=== PATIENT | male | born 1960 | race African-American/Black ===

== ENCOUNTER 2017-08-18 11:36 | Inpatient (IN) | payer OTHER ==
[2017-08-18 11:38] VITALS: BMI 26.6
--- NOTE | 2017-08-18 15:28 | HP ---
CIWA Score - CIWA Score Nausea/Vomitin-No Nausea/No Vomiting Muscle Tremors: 1-None Visible, but [place] Anxiety: 5 Agitation: 2 Paroxysmal Sweats: 1-Minimal Palms Moist Orientation: 0-Oriented Tacttile Disturbances: 3-Moderate Itch/Numb/Burn Auditory Disturbances: 0-None Visual Disturbances: 0-None Headache: 0-None Present CIWA-Ar Total Score: 12 Admission ROS BHS - HPI Chief Complaint: WITHDRAWAL SX FROM ALCOHOL Allergies/Adverse Reactions: Allergies Allergy/AdvReac Type Severity Reaction Status Date / Time No Known Allergies Allergy Verified 08/18/17 13:18 History of Present Illness: 57 Y/O AA/MALE WITH A HX ALCOHOL COCAINE AND MARIJUANA DEPENDENCE SEEKING DETOX TX. 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 [place]. PRIMARY CARE AT [facility]. Exam Limitations: No Limitations - Ebola screening Have you traveled outside of the country in the last 21 days: No Have you had contact with anyone from an Ebola affected area: No Have you been sick,other than usual withdrawal symptoms: No Do you have a fever: No - Review of Systems Constitutional: Chills, Loss of Appetite, Night Sweats, Unintentional Wgt. Loss EENT: reports: Blurred Vision (WEARS GLASSES), Tearing, Nose Congestion, Dental Problems (MISSING TEETH- PARTIAL UPPER DENTURE) Respiratory: reports: No Symptoms reported Cardiac: reports: No Symptoms Reported GI: reports: Constipated, Diarrhea, Nausea, Poor Appetite, Poor Fluid Intake, Vomiting : reports: No Symptoms Reported Musculoskeletal: reports: Joint Pain (RIGHT LOWER LEG PAIN-TRUAMA TO TIBIA 2 YRS AGO) Integumentary: reports: Rash (ON BACK OF NECK) Neuro: reports: No Symptoms reported Endocrine: reports: No Symptoms Reported Hematology: reports: Anemia Psychiatric: reports: Orientated x3, Anxious, Depressed Other Systems: Reviewed and Negative Patient History - Patient Medical History Hx Anemia: Yes (TREATMENT IN THE PAST) Hx Asthma: No Hx Chronic Obstructive Pulmonary Disease (COPD): No Hx Cancer: Yes (OF LYMPH NODES-CHEMO 2 YRS AGO.) Hx Cardiac Disorders: No Hx Hypertension: No Hx Hypercholesterolemia: Yes (ON MED BUT FORGOT NAME) HX Cerebrovascular Accident: No Hx Seizures: No Hx Diabetes: Yes (ON MED) Hx Gastrointestinal Disorders: No Hx Genitourinary Disorders: No Hx Sexually Transmitted Disorders: No Hx Renal Disease (ESRD): No Hx Thyroid Disease: No Hx Hepatitis C: No Hx Depression: Yes Hx Suicide Attempt: No Hx Schizophrenia: No - Patient Surgical History Past Surgical History: Yes Hx Neurologic Surgery: No Hx Cataract Extraction: No Hx Cardiac Surgery: No Hx Lung Surgery: No Hx Breast Surgery: No Hx Breast Biopsy: No Hx Abdominal Surgery: No Hx Appendectomy: No Hx Cholecystectomy: No Hx Genitourinary Surgery: No Hx Section: No Hx Orthopedic Surgery: Yes (Left hand surgery) Other Surgical History: Neck and ankle cancer Anesthesia Reaction: No - PPD History Previous Implant?: Yes (Needs chest X-ray.) Documented Results: Positive w/o proof Implanted On Prior [facility] Admission?: No Results: CXR TBD PPD to be Administered?: No - Reproductive History Patient is a Female of Child Bearing Age (11 -55 yrs old): No (MALE) - Smoking Cessation Smoking history: Current every day smoker Have you smoked in the past 12 months: Yes Aproximately how many cigarettes per day: 10 Hx Chewing Tobacco Use: No Initiated information on smoking cessation: Yes 'Breaking Loose' booklet given: 08/18/17 - Substance & Tx. History Hx Alcohol Use: Yes (BEER) Hx Substance Use: Yes (COCAINE/MARIJUANA) Substance Use Type: Alcohol, Cocaine, Marijuana Hx Substance Use Treatment: Yes (BUT DOES NOT REMEMBER) - Substances Abused Alcohol Route: Oral Frequency: Daily Amount used: 80 oz of beer Age of first use: 28 Date of Last Use: 08/17/17 Crack Route: Smoking Frequency: 3-6 times per week Amount used: 10 vials Age of first use: 32 Date of Last Use: 08/16/17 Marijuana/Hashish Route: Smoking Frequency: 1-2 times per week Amount used: onr dime bag Age of first use: 32 Date of Last Use: 08/16/17 Family Disease History - Family Disease History Family History: Unable to Obtain Family Disease History: [place]: Brother, Other: Mother (HTN) Admission Physical Exam BHS - Vital Signs Vital Signs: Vital Signs - 24 hr 08/18/17 08/18/17 11:36 12:54 Temperature 97 F L 97 F L Pulse Rate 97 H 97 H Respiratory 18 18 Rate Blood Pressure 149/89 149/89 - Physical General Appearance: Yes: Moderate Distress, Irritable, Anxious HEENTM: Yes: EOMI, Normocephalic, KAUSHIK, Pharynx Normal Respiratory: Yes: Chest Non-Tender, Lungs Clear, Normal Breath Sounds, No Respiratory Distress Neck: Yes: Supple, Trachea in good position Breast: Yes: Breast Exam Deferred Cardiology: Yes: Regular Rhythm, Regular Rate, S1, S2 Abdominal: Yes: Normal Bowel Sounds, Non Tender, Flat, Soft Genitourinary: Yes: Other (N/C) Back: Yes: Within Normal Limits Musculoskeletal: Yes: full range of Motion, Gait Steady Extremities: Yes: Normal Range of Motion, Non-Tender 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 [employer] II-XII NML intact, Fully Oriented, Alert, Motor Strength 5/5 Integumentary: Yes: Dry, Warm Lymphatic: Yes: Within Normal Limits - Diagnostic (1) Alcohol dependence with uncomplicated withdrawal Current Visit: Yes Status: Acute (2) Cocaine dependence, uncomplicated Current Visit: Yes Status: Acute (3) Cannabis dependence, uncomplicated Current Visit: Yes Status: Acute (4) Hypercholesterolemia Current Visit: Yes Status: Acute (5) Type 2 diabetes mellitus Current Visit: Yes Status: Chronic Cleared for Admission [facility] - Detox or Rehab [facility] Level of Care: Medically Managed Detox Regimen/Protocol: Librium [facility] Breath Alcohol Content Breath Alcohol Content: 0 Urine Drug Screen - Results Drug Screen Negative: Yes Urine Drug Screen Results: THC-Marijuana, RAJESH-Cocaine
[2017-08-18] MEDS ORDERED: MAGNESIUM CITRATE 300 ML BOTTLE PO PRN (15:56)
[2017-08-18] MEDS ORDERED: guaiFENesin/D-METHORPHAN HB 10 ML UNIT-DOSE CUPS PO PRN (15:56)
[2017-08-18] MEDS ORDERED: chlordiazePOXIDE HCL 25 MG CAPSULE PO PRN (15:56)
[2017-08-18] MEDS ORDERED: chlordiazePOXIDE HCL 25 MG CAPSULE PO ONE (15:56)
[2017-08-18] MEDS ORDERED: NICOTINE POLACRILEX 2 MG GUM BUC PRN (15:56)
[2017-08-18] MEDS ORDERED: MAGNESIUM HYDROX 2400MG/30ML ORAL SUSPENSION 30 ML CUP PO PRN (15:56)
[2017-08-18] MEDS ORDERED: MENTHOL/PHENOL 1 EACH UD MM PRN (15:56)
[2017-08-18] MEDS ORDERED: ACETAMINOPHEN 325 MG TABLET (FP) PO PRN (15:56)
[2017-08-18] MEDS ORDERED: MAG HYDROX/AL HYDROX/SIMETH 30 ML UNIT-DOSE CUP PO PRN (15:56)
[2017-08-18] MEDS ORDERED: LOPERAMIDE HCL 2 MG CAPSULE PO PRN (15:56)
[2017-08-18] MEDS ORDERED: P-EPHED 60MG/TRIPROLIDI 2.5MG TABLET PO PRN (15:56)
[2017-08-18] MEDS ORDERED: IBUPROFEN 400 MG TABLET (FP) PO PRN (15:56)
--- NOTE | 2017-08-18 16:55 | CONSULT ---
[facility] Psychiatric Consult - Data Date of interview: 08/18/17 Admission source: [facility] Identifying data: First admission to [facility] for this 57 y/o AA male seeking detox treatment on for alcohol,cocaine (crack) and cannabis dependence.Patient is ,a father of four,domiciled,unemployed and supported on SSD benefits. Substance Abuse History: Confirmed by the patient in tis examination.Details in current [facility] report : Smoking history: Current every day smoker. Have you smoked in the past 12 months: Yes. Aproximately how many cigarettes per day: 10. Hx Chewing Tobacco Use: No. Initiated information on smoking cessation: Yes. 'Breaking Loose' booklet given: 08/18/17. - Substance & Tx. History. Hx Alcohol Use: Yes (BEER). Hx Substance Use: Yes (COCAINE/MARIJUANA). Substance Use Type: Alcohol, Cocaine, Marijuana. Hx Substance Use Treatment: Yes (BUT DOES NOT REMEMBER). - Substances Abused. Alcohol. Route: Oral. Frequency : Daily. Amount used: 80 oz of beer. Age of first use: 28. Date of Last Use: 08/17/17. Crack. Route: Smoking. Frequency: 3-6 times per week. Amount used: 10 vials. Age of first use: 32. Date of Last Use: 08/16/17. Marijuana/Hashish. Route: Smoking. Frequency: 1-2 times per week. Amount used : onr dime bag. Age of first use: 32. Date of Last Use: 08/16/17 Medical History: Remarkable for a history of throat cancer (surgery + chemotherapy),diabetes mellitus,dyslipidemia and anemia. Psychiatric History: Patient denies history of mental illness or psychiatric hospitalizations.No history of psychiatric OPD care.Mr Rodriguez denies suicide attempts. Physical/Sexual Abuse/Trauma History: No reported history of abuse.Coping well with malignancy (cancer survivor). Additional Comment: Urine Drug Screen Results: THC-Marijuana, RAJESH-Cocaine.Noted. Mental Status Exam - Mental Status Exam Alert and Oriented to: Time, Place, Person Cognitive Function: Good Patient Appearance: Well Groomed (short stature) Mood: Hopeful, Euthymic Affect: Appropriate, Normal Range Patient Behavior: Fatigued, Appropriate (well-mannered), Cooperative Speech Pattern: Clear, Appropriate Voice Loudness: Normal Thought Process: Intact, Goal Oriented Thought Disorder: Not Present Hallucinations: Denies Suicidal Ideation: Denies Homicidal Ideation: Denies Insight/Judgement: Poor Sleep: Well Appetite: Good Muscle strength/Tone: Normal Gait/Station: Normal Psychiatric Findings - Problem List (Omega 1, 2,3) (1) Alcohol dependence with uncomplicated withdrawal Current Visit: Yes Status: Acute (2) Cannabis dependence, uncomplicated Current Visit: Yes Status: Acute (3) Cocaine dependence, uncomplicated Current Visit: Yes Status: Acute - Initial Treatment Plan Initial Treatment Plan: Psychoeducation and support.Orientation to unit.Patient is made aware of the benefits of attendance + active participation to therapy groups and recreational programs throughout his hospital course.Detoxification treatment is initiated.Observation.
[2017-08-18] MEDS: chlordiazePOXIDE HCL 25 MG CAPSULE PO SCH ×2 (17:14→23:08)
[2017-08-18] MEDS: NICOTINE 14 MG/24 HOURS TOPICAL PATCH TD SCH (17:14)
[2017-08-18] MEDS ORDERED: metFORMIN HCL 500 MG TABLET (FP) PO ONE (18:30)
[2017-08-18] MEDS ORDERED: MELATONIN 5 MG TABLETS PO PRN (22:00)
[2017-08-18 22:46] LABS: URINE APPEARANCE CLEAR; URINE BILIRUBIN NEGATIVE (<2.0 mg/dL); URINE BLOOD NEGATIVE (NEGATIVE); URINE COLOR LTYELLOW; URINE GLUCOSE (UA) 3+ (NEGATIVE); URINE KETONE TRACE (NEGATIVE); URINE LEUK ESTERASE NEGATIVE (NEGATIVE); URINE NITRITE NEGATIVE (NEGATIVE); URINE PROTEIN NEGATIVE (NEGATIVE); URINE UROBILINOGEN NEGATIVE mg/dL (0.2-1.0)
[2017-08-18] MEDS: THIAMINE HCL 100 MG TABLET (FP) PO SCH (23:08)
[2017-08-19] MEDS: chlordiazePOXIDE HCL 25 MG CAPSULE PO SCH ×4 (05:26→22:15)
[2017-08-19] MEDS: metFORMIN HCL 500 MG TABLET (FP) PO SCH (08:07)
[2017-08-19] MEDS: NICOTINE 14 MG/24 HOURS TOPICAL PATCH TD SCH (10:13)
[2017-08-19] MEDS: PRENATAL VITAMINS W/ FOLIC ACID TABLET (FP) PO SCH (10:13)
[2017-08-19 10:28] LABS: HEMATOCRIT 44.1 % (35.4-49); HEMOGLOBIN 14.7 GM/dL (11.7-16.9); MCH 33.7 pg (25.7-33.7); MCHC 33.4 g/dl (32.0-35.9); MEAN CELL VOLUME 101.1 fl (80-96); MEAN PLT VOLUME 8.5 fl (7.5-11.1); PLATELET COUNT 226 K/MM3 (134-434); RBC 4.36 M/mm3 (4.00-5.60); WHITE BLOOD COUNT 4.3 K/mm3 (4.0-10.0)
[2017-08-19 10:56] LABS: ALBUMIN 3.9 g/dl (3.4-5.0); ANION GAP 7 (8-16); BLOOD UREA NITROGEN 11 mg/dL (7-18); CALCIUM 9.2 mg/dL (8.5-10.1); CHLORIDE 105 mmol/L (98-107); CO2 27 mmol/L (21-32); CREATININE 1.1 mg/dL (0.7-1.3); GLUCOSE,RANDOM 212 mg/dL (74-106); POTASSIUM 4.6 mmol/L (3.5-5.1); SGOT/AST 22 U/L (15-37); SGPT/ALT 27 U/L (12-78); SODIUM 139 mmol/L (136-145)
[2017-08-19 10:57] LABS: ALK PHOS 103 U/L (45-117); BILIRUBIN,TOTAL 0.3 mg/dL (0.2-1.0); TOT PROT 7.1 g/dl (6.4-8.2)
--- NOTE | 2017-08-19 11:07 | EKG ---
Test Reason : Blood Pressure : / mmHG Vent. Rate : 095 BPM Atrial Rate : 095 BPM P-R Int : 158 ms QRS Dur : 070 ms QT Int : 352 ms P-R-T Axes : 062 -18 246 degrees QTc Int : 442 ms NORMAL SINUS RHYTHM T WAVE ABNORMALITY, CONSIDER INFEROLATERAL ISCHEMIA ABNORMAL ECG WHEN COMPARED WITH ECG OF 18-AUG-2017 17:06, NO SIGNIFICANT CHANGE WAS FOUND Confirmed by DMITRY CARPENTER, YOEL ([id number]) on 08/19/2017 11:07:17 AM Referred By: Confirmed By:YOEL ANDRES MD
--- NOTE | 2017-08-19 11:09 | EKG ---
Test Reason : Blood Pressure : / mmHG Vent. Rate : 086 BPM Atrial Rate : 086 BPM P-R Int : 156 ms QRS Dur : 086 ms QT Int : 376 ms P-R-T Axes : 061 -28 -17 degrees QTc Int : 449 ms NORMAL SINUS RHYTHM NONSPECIFIC T WAVE ABNORMALITY ABNORMAL ECG NO PREVIOUS ECGS AVAILABLE Confirmed by DMITRY CARPENTER, YOEL ([id number]) on 08/19/2017 11:08:47 AM Referred By: Confirmed By:YOEL ANDRES MD
[2017-08-19 11:39] LABS: SICKLE CELL SCREEN NEGATIVE (NEGATIVE)
[2017-08-19] MEDS: HYDROCORTISONE 1% TOPICAL CREAM 30 GM TUBE TP SCH ×2 (13:58→22:14)
--- NOTE | 2017-08-19 17:21 | PN ---
[facility] CIWA - CIWA Score Nausea/Vomitin-No Nausea/No Vomiting Muscle Tremors: 2 Anxiety: 3 Agitation: 4-Moderately Restless Paroxysmal Sweats: 3 Orientation: 0-Oriented Tacttile Disturbances: 0-None Auditory Disturbances: 2-Mild Harshness/Frighten Visual Disturbances: 0-None Headache: 0-None Present CIWA-Ar Total Score: 14 BHS Progress Note (SOAP) Subjective: Fatigue, Anxious, sweating, Tremors. Objective: PATIENT A & O X 3, OBSERVED AMBULATING ON UNIT. NO ACUTE DISTRESS. 08/19/17 17:22 Vital Signs Temperature 97.8 F 08/19/17 14:30 Pulse Rate 99 H 08/19/17 14:30 Respiratory Rate 20 08/19/17 14:30 Blood Pressure 116/79 08/19/17 14:30 O2 Sat by Pulse Oximetry (%) Laboratory Tests 08/18/17 08/18/17 08/19/17 17:16 22:30 05:26 WBC RBC Hgb Hct MCV MCH MCHC RDW Plt Count MPV Sickle Cell Screen Sodium Potassium Chloride Carbon Dioxide Anion Gap BUN Creatinine Creat Clearance w eGFR POC Glucometer 196 271 Random Glucose Calcium Total Bilirubin AST ALT Alkaline Phosphatase Total Protein Albumin Urine Color Ltyellow Urine Appearance Clear Urine pH 5.0 Ur Specific [place] 1.025 Urine Protein Negative Urine Glucose (UA) 3+ H Urine Ketones Trace H Urine Blood Negative Urine Nitrite Negative Urine Bilirubin Negative Urine Urobilinogen Negative Ur Leukocyte Esterase Negative RPR Titer HIV 1&2 Antibody Screen HIV P24 Antigen 08/19/17 08/19/17 08/19/17 06:00 06:00 06:00 WBC 4.3 RBC 4.36 Hgb 14.7 Hct 44.1 MCV 101.1 H MCH 33.7 MCHC 33.4 RDW 15.0 Plt Count 226 MPV 8.5 Sickle Cell Screen Negative Sodium 139 Potassium 4.6 Chloride 105 Carbon Dioxide 27 Anion Gap 7 L BUN 11 Creatinine 1.1 Creat Clearance w eGFR > 60 POC Glucometer Random Glucose 212 H Calcium 9.2 Total Bilirubin 0.3 AST 22 ALT 27 Alkaline Phosphatase 103 Total Protein 7.1 Albumin 3.9 Urine Color Urine Appearance Urine pH Ur Specific [place] Urine Protein Urine Glucose (UA) Urine Ketones Urine Blood Urine Nitrite Urine Bilirubin Urine Urobilinogen Ur Leukocyte Esterase RPR Titer Nonreactive HIV 1&2 Antibody Screen HIV P24 Antigen 08/19/17 08/19/17 06:00 16:32 WBC RBC Hgb Hct MCV MCH MCHC RDW Plt Count MPV Sickle Cell Screen Sodium Potassium Chloride Carbon Dioxide Anion Gap BUN Creatinine Creat Clearance w eGFR POC Glucometer 180 Random Glucose Calcium Total Bilirubin AST ALT Alkaline Phosphatase Total Protein Albumin Urine Color Urine Appearance Urine pH Ur Specific [place] Urine Protein Urine Glucose (UA) Urine Ketones Urine Blood Urine Nitrite Urine Bilirubin Urine Urobilinogen Ur Leukocyte Esterase RPR Titer HIV 1&2 Antibody Screen Negative HIV P24 Antigen Negative LABS NOTED. Assessment: 08/19/17 17:22 WITHDRAWAL SYMPTOMS. Plan: CONTINUE DETOX.
[2017-08-19] MEDS: THIAMINE HCL 100 MG TABLET (FP) PO SCH (22:14)
[2017-08-20] MEDS: chlordiazePOXIDE HCL 25 MG CAPSULE PO SCH ×2 (05:52→10:46)
[2017-08-20] MEDS: metFORMIN HCL 500 MG TABLET (FP) PO SCH (06:46)
[2017-08-20] MEDS: PRENATAL VITAMINS W/ FOLIC ACID TABLET (FP) PO SCH (10:44)
[2017-08-20] MEDS: NICOTINE 14 MG/24 HOURS TOPICAL PATCH TD SCH (10:44)
[2017-08-20] MEDS: HYDROCORTISONE 1% TOPICAL CREAM 30 GM TUBE TP SCH ×2 (10:44→23:02)
--- NOTE | 2017-08-20 11:54 | PN ---
[facility] CIWA - CIWA Score Nausea/Vomitin-No Nausea/No Vomiting Muscle Tremors: 4-Moderate,w/Arms Extend Anxiety: 4-Mod. Anxious/Guarded Agitation: 3 Paroxysmal Sweats: 1-Minimal Palms Moist Orientation: 0-Oriented Tacttile Disturbances: 3-Moderate Itch/Numb/Burn Auditory Disturbances: 0-None Visual Disturbances: 0-None Headache: 0-None Present CIWA-Ar Total Score: 15 S Progress Note (SOAP) Subjective: ANXIETY,TREMORS,CHILLS,FATIGUE.ALERT O X 3. Objective: 08/20/17 11:53 Vital Signs Temperature 97.7 F 08/20/17 09:22 Pulse Rate 82 08/20/17 09:22 Respiratory Rate 18 08/20/17 09:22 Blood Pressure 111/77 08/20/17 09:22 O2 Sat by Pulse Oximetry (%) Laboratory Last Values WBC 4.3 K/mm3 (4.0-10.0) 08/19/17 06:00 RBC 4.36 M/mm3 (4.00-5.60) 08/19/17 06:00 Hgb 14.7 GM/dL (11.7-16.9) 08/19/17 06:00 Hct 44.1 % (35.4-49) 08/19/17 06:00 MCV 101.1 fl (80-96) H 08/19/17 06:00 MCH 33.7 pg (25.7-33.7) 08/19/17 06:00 MCHC 33.4 g/dl (32.0-35.9) 08/19/17 06:00 RDW 15.0 % (11.9-15.9) 08/19/17 06:00 Plt Count 226 K/MM3 (134-434) 08/19/17 06:00 MPV 8.5 fl (7.5-11.1) 08/19/17 06:00 Sickle Cell Screen Negative (NEGATIVE) 08/19/17 06:00 Sodium 139 mmol/L (136-145) 08/19/17 06:00 Potassium 4.6 mmol/L (3.5-5.1) 08/19/17 06:00 Chloride 105 mmol/L (98-107) 08/19/17 06:00 Carbon Dioxide 27 mmol/L (21-32) 08/19/17 06:00 Anion Gap 7 (8-16) L 08/19/17 06:00 BUN 11 mg/dL (7-18) 08/19/17 06:00 Creatinine 1.1 mg/dL (0.7-1.3) 08/19/17 06:00 Creat Clearance w eGFR > 60 (>60) 08/19/17 06:00 POC Glucometer 180 UNITS (80-120) 08/19/17 16:32 Random Glucose 212 mg/dL (74-106) H 08/19/17 06:00 Calcium 9.2 mg/dL (8.5-10.1) 08/19/17 06:00 Total Bilirubin 0.3 mg/dL (0.2-1.0) 08/19/17 06:00 AST 22 U/L (15-37) 08/19/17 06:00 ALT 27 U/L (12-78) 08/19/17 06:00 Alkaline Phosphatase 103 U/L (45-117) 08/19/17 06:00 Total Protein 7.1 g/dl (6.4-8.2) 08/19/17 06:00 Albumin 3.9 g/dl (3.4-5.0) 08/19/17 06:00 Urine Color Ltyellow 08/18/17 22:30 Urine Appearance Clear 08/18/17 22:30 Urine pH 5.0 (5.0-8.0) 08/18/17 22:30 Ur Specific [place] 1.025 (1.001-1.035) 08/18/17 22:30 Urine Protein Negative (NEGATIVE) 08/18/17 22:30 Urine Glucose (UA) 3+ (NEGATIVE) H 08/18/17 22:30 Urine Ketones Trace (NEGATIVE) H 08/18/17 22:30 Urine Blood Negative (NEGATIVE) 08/18/17 22:30 Urine Nitrite Negative (NEGATIVE) 08/18/17 22:30 Urine Bilirubin Negative (<2.0 mg/dL) 08/18/17 22:30 Urine Urobilinogen Negative mg/dL (0.2-1.0) 08/18/17 22:30 Ur Leukocyte Esterase Negative (NEGATIVE) 08/18/17 22:30 RPR Titer Nonreactive (NONREACTIVE) 08/19/17 06:00 HIV 1&2 Antibody Screen Negative 08/19/17 06:00 HIV P24 Antigen Negative 08/19/17 06:00 Assessment: 08/20/17 11:53 WITHDRAWAL SX Plan: CONTINUE DETOX
[2017-08-20] MEDS: chlordiazePOXIDE 5 MG CAPSULE PO SCH ×2 (17:23→22:11)
[2017-08-20] MEDS: THIAMINE HCL 100 MG TABLET (FP) PO SCH (22:11)
[2017-08-21] MEDS: chlordiazePOXIDE 5 MG CAPSULE PO SCH ×2 (05:57→10:45)
[2017-08-21] MEDS: metFORMIN HCL 500 MG TABLET (FP) PO SCH (07:08)
[2017-08-21] MEDS: PRENATAL VITAMINS W/ FOLIC ACID TABLET (FP) PO SCH (10:45)
[2017-08-21] MEDS: HYDROCORTISONE 1% TOPICAL CREAM 30 GM TUBE TP SCH ×2 (10:45→22:46)
[2017-08-21] MEDS: NICOTINE 14 MG/24 HOURS TOPICAL PATCH TD SCH (10:45)
--- NOTE | 2017-08-21 14:31 | PN ---
BHS Progress Note (SOAP) Subjective: Fatigue, Anxious. Objective: PATIENT A & O X 3. NO ACUTE DISTRESS. 08/21/17 14:29 Vital Signs Temperature 97.2 F L 08/21/17 13:13 Pulse Rate 94 H 08/21/17 13:13 Respiratory Rate 18 08/21/17 13:13 Blood Pressure 125/86 08/21/17 13:13 O2 Sat by Pulse Oximetry (%) Laboratory Tests 08/18/17 08/18/17 08/19/17 17:16 22:30 05:26 WBC RBC Hgb Hct MCV MCH MCHC RDW Plt Count MPV Sickle Cell Screen Sodium Potassium Chloride Carbon Dioxide Anion Gap BUN Creatinine Creat Clearance w eGFR POC Glucometer 196 271 Random Glucose Calcium Total Bilirubin AST ALT Alkaline Phosphatase Total Protein Albumin Urine Color Ltyellow Urine Appearance Clear Urine pH 5.0 Ur Specific [place] 1.025 Urine Protein Negative Urine Glucose (UA) 3+ H Urine Ketones Trace H Urine Blood Negative Urine Nitrite Negative Urine Bilirubin Negative Urine Urobilinogen Negative Ur Leukocyte Esterase Negative RPR Titer HIV 1&2 Antibody Screen HIV P24 Antigen 08/19/17 08/19/17 08/19/17 06:00 06:00 06:00 WBC 4.3 RBC 4.36 Hgb 14.7 Hct 44.1 MCV 101.1 H MCH 33.7 MCHC 33.4 RDW 15.0 Plt Count 226 MPV 8.5 Sickle Cell Screen Negative Sodium 139 Potassium 4.6 Chloride 105 Carbon Dioxide 27 Anion Gap 7 L BUN 11 Creatinine 1.1 Creat Clearance w eGFR > 60 POC Glucometer Random Glucose 212 H Calcium 9.2 Total Bilirubin 0.3 AST 22 ALT 27 Alkaline Phosphatase 103 Total Protein 7.1 Albumin 3.9 Urine Color Urine Appearance Urine pH Ur Specific [place] Urine Protein Urine Glucose (UA) Urine Ketones Urine Blood Urine Nitrite Urine Bilirubin Urine Urobilinogen Ur Leukocyte Esterase RPR Titer Nonreactive HIV 1&2 Antibody Screen HIV P24 Antigen 08/19/17 08/19/17 08/20/17 06:00 16:32 16:24 WBC RBC Hgb Hct MCV MCH MCHC RDW Plt Count MPV Sickle Cell Screen Sodium Potassium Chloride Carbon Dioxide Anion Gap BUN Creatinine Creat Clearance w eGFR POC Glucometer 180 262 Random Glucose Calcium Total Bilirubin AST ALT Alkaline Phosphatase Total Protein Albumin Urine Color Urine Appearance Urine pH Ur Specific [place] Urine Protein Urine Glucose (UA) Urine Ketones Urine Blood Urine Nitrite Urine Bilirubin Urine Urobilinogen Ur Leukocyte Esterase RPR Titer HIV 1&2 Antibody Screen Negative HIV P24 Antigen Negative 08/21/17 05:58 WBC RBC Hgb Hct MCV MCH MCHC RDW Plt Count MPV Sickle Cell Screen Sodium Potassium Chloride Carbon Dioxide Anion Gap BUN Creatinine Creat Clearance w eGFR POC Glucometer 252 Random Glucose Calcium Total Bilirubin AST ALT Alkaline Phosphatase Total Protein Albumin Urine Color Urine Appearance Urine pH Ur Specific [place] Urine Protein Urine Glucose (UA) Urine Ketones Urine Blood Urine Nitrite Urine Bilirubin Urine Urobilinogen Ur Leukocyte Esterase RPR Titer HIV 1&2 Antibody Screen HIV P24 Antigen labs noted. Assessment: 08/21/17 14:29 WITHDRAWAL SYMPTOMS. Plan: CONTINUE DETOX.
[2017-08-21] MEDS: chlordiazePOXIDE HCL 10 MG CAPSULE PO SCH ×2 (17:28→22:47)
[2017-08-21] MEDS: THIAMINE HCL 100 MG TABLET (FP) PO SCH (22:47)
[2017-08-22] MEDS: chlordiazePOXIDE HCL 10 MG CAPSULE PO SCH (05:47)
[2017-08-22] MEDS: metFORMIN HCL 500 MG TABLET (FP) PO SCH (07:11)
[2017-08-22 09:25] VITALS: BP 117/77; PULSE 91; TEMP 98.7
--- NOTE | 2017-08-22 11:32 | DS ---
[facility] Detox Discharge Summary Admission Date: 08/18/17 Discharge Date: 08/22/17 - History Present History: Alcohol Dependence, Cannabis Dependence, Cocaine Dependence Pertinent Past History: DMT2 PPD Positive HLD - Physical Exam Results Vital Signs: Vital Signs Temperature 98.7 F 08/22/17 09:25 Pulse Rate 91 H 08/22/17 09:25 Respiratory Rate 18 08/22/17 09:25 Blood Pressure 117/77 08/22/17 09:25 O2 Sat by Pulse Oximetry (%) Pertinent Admission Physical Exam Findings: Withdrawal symptoms Laboratory Tests 08/18/17 08/18/17 08/19/17 17:16 22:30 05:26 WBC RBC Hgb Hct MCV MCH MCHC RDW Plt Count MPV Sickle Cell Screen Sodium Potassium Chloride Carbon Dioxide Anion Gap BUN Creatinine Creat Clearance w eGFR POC Glucometer 196 271 Random Glucose Calcium Total Bilirubin AST ALT Alkaline Phosphatase Total Protein Albumin Urine Color Ltyellow Urine Appearance Clear Urine pH 5.0 Ur Specific [place] 1.025 Urine Protein Negative Urine Glucose (UA) 3+ H Urine Ketones Trace H Urine Blood Negative Urine Nitrite Negative Urine Bilirubin Negative Urine Urobilinogen Negative Ur Leukocyte Esterase Negative RPR Titer HIV 1&2 Antibody Screen HIV P24 Antigen 08/19/17 08/19/17 08/19/17 06:00 06:00 06:00 WBC 4.3 RBC 4.36 Hgb 14.7 Hct 44.1 MCV 101.1 H MCH 33.7 MCHC 33.4 RDW 15.0 Plt Count 226 MPV 8.5 Sickle Cell Screen Negative Sodium 139 Potassium 4.6 Chloride 105 Carbon Dioxide 27 Anion Gap 7 L BUN 11 Creatinine 1.1 Creat Clearance w eGFR > 60 POC Glucometer Random Glucose 212 H Calcium 9.2 Total Bilirubin 0.3 AST 22 ALT 27 Alkaline Phosphatase 103 Total Protein 7.1 Albumin 3.9 Urine Color Urine Appearance Urine pH Ur Specific [place] Urine Protein Urine Glucose (UA) Urine Ketones Urine Blood Urine Nitrite Urine Bilirubin Urine Urobilinogen Ur Leukocyte Esterase RPR Titer Nonreactive HIV 1&2 Antibody Screen HIV P24 Antigen 08/19/17 08/19/17 08/20/17 06:00 16:32 16:24 WBC RBC Hgb Hct MCV MCH MCHC RDW Plt Count MPV Sickle Cell Screen Sodium Potassium Chloride Carbon Dioxide Anion Gap BUN Creatinine Creat Clearance w eGFR POC Glucometer 180 262 Random Glucose Calcium Total Bilirubin AST ALT Alkaline Phosphatase Total Protein Albumin Urine Color Urine Appearance Urine pH Ur Specific [place] Urine Protein Urine Glucose (UA) Urine Ketones Urine Blood Urine Nitrite Urine Bilirubin Urine Urobilinogen Ur Leukocyte Esterase RPR Titer HIV 1&2 Antibody Screen Negative HIV P24 Antigen Negative 08/21/17 08/22/17 05:58 05:47 WBC RBC Hgb Hct MCV MCH MCHC RDW Plt Count MPV Sickle Cell Screen Sodium Potassium Chloride Carbon Dioxide Anion Gap BUN Creatinine Creat Clearance w eGFR POC Glucometer 252 284 Random Glucose Calcium Total Bilirubin AST ALT Alkaline Phosphatase Total Protein Albumin Urine Color Urine Appearance Urine pH Ur Specific [place] Urine Protein Urine Glucose (UA) Urine Ketones Urine Blood Urine Nitrite Urine Bilirubin Urine Urobilinogen Ur Leukocyte Esterase RPR Titer HIV 1&2 Antibody Screen HIV P24 Antigen Labs noted - Treatment Hospital Course: Detox Protocol Followed, Detoxed Safely, Responded well, Discharged Condition Good - Medication Discharge Medications: Ambulatory Orders Metformin HCl 500 mg PO DAILY 08/18/17 - Diagnosis (1) PPD positive Status: Chronic (2) Nicotine dependence Status: Chronic (3) Type 2 diabetes mellitus with hyperglycemia Status: Chronic (4) Alcohol dependence with uncomplicated withdrawal Status: Acute (5) Cannabis dependence, uncomplicated Status: Chronic (6) Cocaine dependence, uncomplicated Status: Chronic (7) Hypercholesterolemia Status: Chronic - AMA Did Patient Leave Against Medical Advice: No (Follow up with your PCP within 1- 2 weeks)
== END 2017-08-22 09:20 | disposition home or self-care (01) | DRG 774 ==
LOC: YASAS 11:36 → Y3N 16:18
PROVIDERS: ADMIT Internal Medicine; ATTEND Internal Medicine
PROC: HZ2ZZZZ Detoxification Services for Substance Abuse Treatment (ICD-10-PCS; principal; 2017-08-18)
DX: F10.230 Alcohol dependence with withdrawal, uncomplicated (principal); F14.20 Cocaine dependence, uncomplicated; F12.20 Cannabis dependence, uncomplicated; F17.210 Nicotine dependence, cigarettes, uncomplicated; E11.65 Type 2 diabetes mellitus with hyperglycemia; E78.00 Pure hypercholesterolemia, unspecified; R76.11 Nonspecific reaction to tuberculin skin test without active tuberculosis; Z86.2 Personal history of diseases of the blood and blood-forming organs and certain disorders involving the immune mechanism; Z79.84 Long term (current) use of oral hypoglycemic drugs
CPT/HCPCS: 36415; 71046-TC-FY; 80053; 81003; 82962; 85027; 85660; 86593; 87389; 93005; 93010